=== PATIENT | male | born 1980 | race African-American/Black ===

== ENCOUNTER 2024-08-17 08:59 | Emergency (ER) | payer OTHER ==
[~2024-08-17] VITALS: Ht 182.9 cm; Wt 90.0 kg
[2024-08-17 09:06] VITALS: O2SAT 99
[2024-08-17 11:05] VITALS: BP 100/68; PULSE 70; RESP 16; TEMP 36.8; O2SAT 99
== END 2024-08-17 11:09 | disposition home or self-care (01) ==
LOC: ER 08:59
DX: M79.645 Pain in left finger(s) (principal); I10 Essential (primary) hypertension
CPT/HCPCS: 73120; 99283